=== PATIENT | male | born 1945 | race African-American/Black ===

== ENCOUNTER → 2016-10-26 | Outpatient (CLI) | payer OTHER ==
[~2016-10-26] VITALS: Ht 177.8 cm; Wt 94.8 kg
[~2016-10-26] MED LIST: ACTOS 15MG TAB15 MG PO; ANTI-FUNGAL1% TP; ASPIR-LOW81 MG PO; ASPIRIN E.C. 8181 MG PO; DULCOLAX TAB5 MG PO; FORTAMET500 MG PO; GLUCOPHAGE1000 MG PO; HCTZ 25MG25 MG PO; HCTZ12.5TAB PO; HUMULIN N 10100 U/ML SQ; INSULIN L (H100 U/ML SQ; INSULIN N (N100 U/ML SC; LISINOPRIL20 MG PO; NORVASC 5MG5 MG/TAB PO; PRINIVIL40 MG PO; PROTONIX 40MG T40 MG PO; TYLENOL 325MG325 MG PO; ULTRAM 50MG TAB50 MG PO; VITAMIN D1000 IU PO; [UNRECOGNIZED DRUG - OTHER] TP
[2016-10-26 10:54] VITALS: BP 145/84; PULSE 63
[2016-10-26 12:25] VITALS: BP 121/64; PULSE 84
[2016-10-26 12:26] VITALS: BP 121/63; PULSE 80
[2016-10-26 12:27] VITALS: BP 117/61; PULSE 78
== END ==
LOC: COL.CARD 10:25
DX: I25.10 Atherosclerotic heart disease of native coronary artery without angina pectoris (principal); I49.9 Cardiac arrhythmia, unspecified; R07.89 Other chest pain; M79.89 Other specified soft tissue disorders; I10 Essential (primary) hypertension; E11.9 Type 2 diabetes mellitus without complications; E78.5 Hyperlipidemia, unspecified; R53.83 Other fatigue
CPT/HCPCS: A9502; J2785